=== PATIENT | female | born 1980 | race Caucasian/White ===

== ENCOUNTER 2017-12-29 16:04 | Outpatient (CLI) | payer BC ==
--- NOTE | 2018-01-03 10:55 | OP Clinic Progress Note ---
REASON FOR VISIT: This 37-year-old female is seen after sinonasal surgery about 3 months ago. She had severe infections, more on the right side than on the left. She had a year or so ago, surgery that was more in the left side. Postoperatively, the patient overall has done better. She has had overall less headaches. She has been taking both Diflucan and Cipro. The infections have significantly resolved. She has had better breathing and fewer headaches. Over about a week, she has gotten markedly increased headaches. She has not described blowing green or yellow or scabs and no blood out of her nose. Using a flexible fiberoptic rhinoscope, I do not see scabs or gross purulence, although there continues to be mucosal edema around the right maxillary antrostomy. I do not see polyps, nor do I see purulence. The left side remains clear and clean. There is still more mucosal thickening on the right side than on the left. The higher probability is that there is a new allergen, March tree allergens are particularly high. PLAN: I have given her prednisone 50 mg, 40 mg, 30 mg, 20 mg, and 10 mg with an opportunity to repeat this. I will be seeing her next week in the office. MALLORIE
== END 2017-12-29 16:05 ==
LOC: ENT 16:04
PROVIDERS: ATTEND Otolaryngology
DX: J32.9 Chronic sinusitis, unspecified (principal)
CPT/HCPCS: 99213